=== PATIENT | female | born 1960 | race Caucasian/White ===

== ENCOUNTER 2019-08-20 13:29 | Emergency (ER) | payer OTHER ==
[~2019-08-20] VITALS: Ht 162.6 cm; Wt 85.3 kg
[2019-08-20 13:43] VITALS: Ht 162.6 cm; Wt 85.3 kg
[2019-08-20 16:12] VITALS: BP 138/72
== END 2019-08-20 16:09 | disposition home or self-care (01) ==
LOC: ED 13:29
DX: S60.221A Contusion of right hand, initial encounter (principal); E11.9 Type 2 diabetes mellitus without complications; R03.0 Elevated blood-pressure reading, without diagnosis of hypertension; Z90.89 Acquired absence of other organs; V43.52XA Car driver injured in collision with other type car in traffic accident, initial encounter; Y93.I9 Activity, other involving external motion; Y92.488 Other paved roadways as the place of occurrence of the external cause; Y99.8 Other external cause status
CPT/HCPCS: Q0092

== ENCOUNTER 2020-11-30 17:33 | Emergency (ER) | payer OTHER ==
[~2020-11-30] VITALS: Ht 162.6 cm; Wt 87.1 kg
[2020-11-30 17:40] VITALS: Ht 162.6 cm; Wt 87.1 kg
[2020-11-30 18:23] VITALS: BP 150/61
== END 2020-11-30 18:23 | disposition home or self-care (01) ==
LOC: ED 17:33
DX: M77.8 Other enthesopathies, not elsewhere classified (principal); E11.9 Type 2 diabetes mellitus without complications